=== PATIENT | male | born 1950 | race Caucasian/White ===

== ENCOUNTER 2017-05-27 00:40 | Day surgery (SDC) | payer MEDICARE, OTHER ==
[~2017-05-27] VITALS: Ht 170.2 cm; Wt 73.5 kg
[~2017-05-27 00:40] MED LIST: ASPI-1441 PO; MIDAZOLAM 2 MG/2 ML VIAL IVP PRN
[2017-05-27] MEDS ORDERED: LIDOCAINE MPF 1% 5 ML VIAL ONE (09:48)
[2017-05-27] MEDS ORDERED: PROPOFOL EMUL(*) 10MG/ML 20 ML 60 ML ONE (09:48)
[2017-05-27 12:06] VITALS: BP 126/96
[2017-05-27] MEDS ORDERED: NORMOSOL R SOLN(*) 1000 ML BAG 1,000 ML IV PRN (13:15)
[2017-05-27] MEDS ORDERED: LIDOCAINE/SOD BICARB 8.4% SYR ID ONE (13:15)
[2017-05-27 13:22] VITALS: BP 93/54
[2017-05-27 13:33] VITALS: BP 88/40
[2017-05-27 13:48] VITALS: BP 109/75
[2017-05-27 13:58] VITALS: BP 119/81
[2017-05-27 13:59] VITALS: BP 115/89
== END 2017-05-27 14:15 | disposition home or self-care (01) ==
LOC: OR 00:40
PROVIDERS: ATTEND Family Medicine
DX: Z12.11 Encounter for screening for malignant neoplasm of colon (principal)
CPT/HCPCS: 00812; G0121; J2001; J2704

== ENCOUNTER → 2017-09-07 | Outpatient (CLI) | payer MEDICARE, OTHER ==
[~2017-09-07] MED LIST changes: -MIDAZOLAM 2 MG/2 ML VIAL IVP PRN
== END ==
LOC: LAB 16:46
PROVIDERS: ATTEND Orthopaedic Surgery Hand Surgery
DX: M25.571 Pain in right ankle and joints of right foot (principal); M25.474 Effusion, right foot
CPT/HCPCS: 36415; 84550